=== PATIENT | female | born 1955 | race Caucasian/White ===

== ENCOUNTER 2019-07-17 14:59 | Day surgery (SDC) | payer BC ==
[~2019-07-17 14:59] MED LIST: CEFAZOLIN 1 GM/50 ML (PMX) 50 ML IVPB
[2019-07-17] MEDS ORDERED: POLYMYXIN/BACITRACIN 1L IRRIG (16:21)
[2019-07-17] MEDS ORDERED: LIDOCAINE 2%/EPI 30 ML INJ (16:37)
[2019-07-17] MEDS ORDERED: CEFAZOLIN 1 GM/50 ML (PMX) 50 ML IVPB (16:54)
[2019-07-17] MEDS ORDERED: LIDOCAINE 1% (MDV) 20 ML INJ (16:54)
[2019-07-17] MEDS ORDERED: FENTAnyl 50 MCG/ML VIAL (17:04)
[2019-07-17] MEDS ORDERED: MIDAZOLAM 1 MG/ML 2 ML INJ (17:04)
[2019-07-17] MEDS ORDERED: DIPHENHYDRAMINE 50 MG INJ (17:32)
[2019-07-17] MEDS ORDERED: LIDOCAINE 1%/EPI (1:100,000) (MDV) 20 ML (17:34)
[2019-07-17] MEDS ORDERED: SOD CHLORIDE 0.9% 500 ML (17:56)
[2019-07-17] MEDS: CEPHALEXIN 500 MG CAP PO (19:16)
== END 2019-07-17 19:30 | disposition home or self-care (01) ==
LOC: SDS 14:59
DX: Z45.02 Encounter for adjustment and management of automatic implantable cardiac defibrillator (principal); I11.0 Hypertensive heart disease with heart failure; I50.9 Heart failure, unspecified; Z86.73 Personal history of transient ischemic attack (TIA), and cerebral infarction without residual deficits; I25.10 Atherosclerotic heart disease of native coronary artery without angina pectoris
CPT/HCPCS: 33249; 71045